=== PATIENT | male | born 1975 | race Caucasian/White ===

== ENCOUNTER 2018-09-06 22:05 | Inpatient (IN) | payer OTHER ==
[2018-09-06] MEDS ORDERED: Fentanyl 100 MCG/2 ML VIAL ONE (22:20)
[2018-09-07] MEDS ORDERED: Fentanyl 100 MCG/2 ML VIAL SLOW IVP PRN ×2 (00:43→07:39)
[2018-09-07] MEDS ORDERED: Ondansetron PF 4 MG/2 ML Vial IVP PRN ×2 (00:45→07:39)
[2018-09-07] MEDS: Fentanyl 100 MCG/2 ML VIAL SLOW IVP PRN ×2 (01:07→04:40)
[2018-09-07 01:24] VITALS: BMI 27.6
[2018-09-07] MEDS ORDERED: Calcium Carbonate 500 MG ChewTAB PO PRN (07:39)
[2018-09-07] MEDS ORDERED: Diabetic Tussin 200 MG/10 ML UDCUP PO PRN (07:39)
[2018-09-07] MEDS ORDERED: Bisacodyl 10 MG SUPP PR PRN (07:39)
[2018-09-07] MEDS ORDERED: Sodium Chloride 0.65% Nasal 44 ML BOT EA NARE PRN (07:39)
[2018-09-07] MEDS ORDERED: Cepastat Lozenges 1 LOZ PO PRN (07:39)
[2018-09-07] MEDS ORDERED: Loratadine 10 MG TAB PO PRN (07:39)
[2018-09-07] MEDS ORDERED: Loperamide HCl 2 MG CAP PO PRN (07:39)
[2018-09-07] MEDS ORDERED: Senokot S 8.6-50 MG TAB PO PRN (07:39)
[2018-09-07] MEDS ORDERED: hydrALAZINE 20 MG/ML VIAL SLOW IVP PRN (07:39)
[2018-09-07] MEDS ORDERED: Artificial Tears 18 DROP/0.9 ML EA EYE PRN (07:39)
[2018-09-07] MEDS ORDERED: Eucerin (Mineral Oil/Petrolatum,White) 30 gm Jar TOP PRN (07:39)
[2018-09-07] MEDS: Famotidine 20 MG TAB PO SCH ×2 (08:48→20:23)
[2018-09-07] MEDS: Ondansetron ODT 4 MG TAB PO PRN ×2 (08:48→18:01)
[2018-09-07] MEDS: HYDROcodone/Acetaminophen 5/325 mg Tablet PO PRN ×4 (08:48→22:14)
[2018-09-07] MEDS: Enoxaparin Sodium 40 MG/0.4 ML SYRINGE SC SCH (08:49)
[2018-09-07] MEDS ORDERED: Dicyclomine 20 MG TAB PO PRN (10:51)
--- NOTE | 2018-09-07 11:16 | HP ---
PRIMARY CARE PHYSICIAN: The patient is an inmate. [facility] admission. REASON FOR ADMISSION: Proctocolitis, abdominal pain. HISTORY OF PRESENT ILLNESS: A 43-year-old male, who reports that he has history of Crohn disease, which was diagnosed about 4-5 years ago. He is not on any specific treatment at this point. He came to emergency room with recurrent history of abdominal pain. He describes pain diffuse positional, not related with food. The patient reports that when he lies down on his back, his pain gets worse, and whenever he bends forward, at that time pain gets better. He denies any associated fever or chills. He does report a few days ago he had nausea and vomiting, and at that time, he noticed blood with vomitus. He also noticed some blood in stool. He denies any abdominal distention. He denies any UTI symptoms. He denies any weight loss. The patient reports that he had upper and lower endoscopy 4-5 years ago at some hospital, which he is not able to tell me the name. 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 He also reports that he has history of pancreatitis. The patient was initially evaluated at [facility], where he was found with proctocolitis based on CT scan and he was transferred to our hospital for further evaluation and treatment. In our emergency room, he was hemodynamically stable. He was given fentanyl for pain, and subsequently, he was admitted to medical floor. REVIEW OF SYSTEMS: CONSTITUTIONAL: Negative for weight loss or gain, ability to conduct usual activities. SKIN: Negative for rash, itching. EYES: Negative for double vision, pain. ENT/MOUTH: Negative for nose bleeding, neck stiffness, pain, tenderness. CARDIOVASCULAR: Negative for palpitations, dyspnea on exertion, orthopnea. RESPIRATORY: Negative for shortness of breath, wheezing, cough, hemoptysis, fever or night sweats. GASTROINTESTINAL: Negative for poor appetite, abdominal pain, heartburn, nausea, vomiting, constipation, or diarrhea. GENITOURINARY: Negative for urgency, frequency, dysuria, nocturia. MUSCULOSKELETAL: Negative for pain, swelling. NEUROLOGIC/PSYCHIATRIC: Negative for anxiety, depression. ALLERGY/IMMUNOLOGIC: Negative for skin rash, bleeding tendency. Please see my HPI for pertinent positive and negative. All other review of systems reviewed and negative, except as mentioned in HPI. PAST MEDICAL HISTORY: Per the patient, he has history of Crohn disease, pancreatitis, inflammatory bowel disease. PAST SURGICAL HISTORY: Cholecystectomy, upper and lower endoscopy. PAST PSYCHIATRIC HISTORY: Reviewed and negative. SOCIAL HISTORY: The patient is living at a detention. No history of currently tobacco, alcohol, or illicit drug abuse. FAMILY HISTORY: Crohn disease to his nephew. Mother had some unknown cancer. ALLERGIES: NO KNOWN DRUG ALLERGY. CURRENT HOME MEDICATIONS: The patient is not on any specific medication at detention. EMERGENCY ROOM COURSE: The patient is given fentanyl. PHYSICAL EXAMINATION: VITAL SIGNS: Currently, blood pressure 110/77, pulse 105, respiratory rate 20, temperature 98.7, saturation 95% on room air, weight 92.5 kg. GENERAL: The patient is currently alert, awake. No obvious acute distress. HEENT: Head; normocephalic, atraumatic. Eyes; pupils round and reactive to light. Extraocular muscles intact. ENT, oropharynx within normal limits. Moist mucous membranes. No oral lesion. No pharyngeal erythema. No exudate. NECK: Supple. No JVD. No thyromegaly. No carotid bruit. No jugular venous distention. LUNGS: Clear to auscultation without any rhonchi or rales. CARDIAC: S1, S2. Regular without any murmur. No gallop. No rub. ABDOMEN: The patient does have subjective diffuse abdominal discomfort. No peritoneal sign. No guarding. No rigidity. No rebound. BACK: Unremarkable. No CVA tenderness. EXTREMITIES: Upper extremity, passive movement of all joints are normal. Lower extremity, no edema. Good distal pulsation. SKIN: No skin rash. HEMATOLOGICAL: No lymphadenopathy. NEUROLOGIC: Nonfocal examination. SIGNIFICANT LABORATORY DATA: Blood test done at [facility], reviewed found with proctocolitis. Otherwise, most of the lab reports are normal. We will repeat CBC, CMP, lipase tomorrow. IMPRESSION: 1. Acute on chronic abdominal pain. 2. Proctocolitis. 3. History of Crohn disease. 4. History of recurrent pancreatitis. PLAN: The patient will be admitted to medical floor. Gastroenterology will be consulted. We will obtain medical record from previous hospital. GI prophylax with Pepcid 20 mg p.o. b.i.d., Bentyl p.r.n. for GI cramp. Pain controlled with fentanyl. DVT prophylaxis for Lovenox 40 mg subcu daily. Disposition plan based on clinical course. We are expecting the patient's stay in hospital more than 2 midnights. Plan of care discussed with the patient in detail. Job ID: [id number]
[2018-09-07] MEDS: Zolpidem Tartrate 5 MG TAB PO PRN (22:18)
[2018-09-08] MEDS: HYDROcodone/Acetaminophen 5/325 mg Tablet PO PRN ×5 (02:10→23:04)
[2018-09-08] MEDS ORDERED: GoLYTELY 4,000 ml Bottle PO SCH ×2 (06:00→12:00)
[2018-09-08 06:12] LABS: #Eosinphils 0.1 thou/uL (0.0-0.7); #Lymphocytes 1.2 thou/uL (1.20-3.40); #Monocytes 0.5 thou/uL (0.11-0.59); #Neutrophils 4.3 thou/uL (1.40-6.50); %Basophils 0.2 % (0.0-1.0); %Eosinophils 1.5 % (0.0-10.0); %Lymphocytes 18.8 % (21.0-51.0); %Monocytes 8.7 % (0.0-10.0); %Neutrophils 70.7 % (42.0-75.0); Hemoglobin 9.5 g/dL (14.0-18.0); Mean Corpuscular HGB CONC 33.7 g/dL (32.0-36.0); Mean Corpuscular Hemoglobin 27.6 pg (27.0-31.0); Mean Corpuscular Volume 82.1 fL (78.0-98.0); Platelet Count 251 thou/uL (130-400); RBC Distribution Width 12.4 % (11.5-14.5); Red Blood Cell (RBC) Count 3.42 mill/uL (4.70-6.10); White Blood Cell (WBC) Count 6.1 thou/uL (4.8-10.8)
[2018-09-08 06:49] LABS: ALT (SGPT) 13 U/L (8-55); AST (SGOT) 12 U/L (5-34); Albumin 2.8 g/dL (3.5-5.0); Alkaline Phosphatase 51 U/L (40-150); Anion Gap 11 mmol/L (10-20); BUN (Urea Nitrogen) 14 mg/dL (8.9-20.6); Bilirubin, Total 0.3 mg/dL (0.2-1.2); Calc. Creatinine Clearance 174 mL/min (70-130); Calcium 8.4 mg/dL (7.8-10.44); Carbon Dioxide 26 mmol/L (22-29); Chloride 101 mmol/L (98-107); Estimated GFR-MDRD Greater than 90; Globulin 2.4 g/dL (2.4-3.5); Glucose 121 mg/dL (70-105); Lipase 7 U/L (8-78); Potassium 3.8 mmol/L (3.5-5.1); Protein, Total 5.2 g/dL (6.0-8.3); Sodium 134 mmol/L (136-145)
--- NOTE | 2018-09-08 07:30 | CON ---
DATE OF CONSULTATION: 09/07/2018 REASON FOR CONSULTATION: Abdominal pain, diarrhea, mild rectal bleeding and abdominal CAT scan done showed proctocolitis. HISTORY: Mr. Javon Short is a 43-year-old male who is an inmate at [facility]. The patient has history of Crohn disease and is not taking medication at all. He is not very truthful about his actual history. He tells me about 4-5 years ago, he was hospitalized with abdominal pain, diarrhea, and had colonoscopy. He was told to have Crohn disease at that time. However, he was not placed on any medication on long-term basis, though has taken intermittent dose of . The patient also has history of pancreatitis in the past. Again, he is very unclear about the etiology. He was drinking alcohol and on the same day, he says he was not doing too heavy. He said he was drinking 4 or 5 drinks over the weekend; otherwise he does not drink at all. The patient tells me he has had 6 or 7 hospital admissions over the last 6 years. The patient developed abdominal pain. It was a cramping in nature over lower abdomen. He also has diarrhea. He says he was having 8 to 9 stools a day. The bleeding was very mild. He says he has lost may be over 26 pounds over the last 1 month. He was sent to [place] [facility] because of abdominal pain and diarrhea. He had a CAT scan and was found to have proctocolitis on CAT scan. The patient was transferred here for further care. He is tolerating diet without any worsening abdominal pain, nausea, or vomiting. He also has tenderness. He says he feels like he needs to go to the bathroom, strains but comes out. There is no history of fever or any systemic symptoms. He appears very comfortable and in no distress at the present time. He is not very forthcoming about having EGD or colonoscopy done or hospital stay. No relevant history. ALLERGIES: NONE. SOCIAL HISTORY: The patient is . No history of alcohol abuse. No history of smoking. No drug abuse. MEDICAL ILLNESSES: 1. History of Crohn disease, diagnosed 5 years ago. 2. Pancreatitis. 3. Status post cholecystectomy. 4. EGD and colonoscopy in the past. FAMILY HISTORY: Nephew with Crohn disease. Mother had some unknown cancer. MEDICATIONS: At the present time, none. REVIEW OF SYSTEMS: CONSTITUTIONAL. He has weight loss of 20 pounds over the last 1 month. His energy level is good. He has no fever. No night sweats. HEAD: No chronic headache. No syncope. No seizure. EYES: No impaired vision or any diplopia. EARS: No hearing loss. NOSE: No nose bleed. THROAT: No sore throat. LUNGS: No chronic coughing, hemoptysis, or dyspnea. CARDIOVASCULAR: No chest pain. No palpitation. No dyspnea, orthopnea, or PND. GI: As in history of present illness. : No dysuria, hematuria or frequency of urination. MUSCULOSKELETAL: Not known. ENDOCRINE: Not known. HEMATOLOGICAL: Not known. EXTREMITIES: Reveal no edema. PHYSICAL EXAMINATION: GENERAL: He is well built, appears very comfortable, in no acute distress. VITAL SIGNS: Afebrile, pulse is 86, blood pressure 116/71. HEENT: Conjunctivae clear. NECK: Supple. No adenitis or thyromegaly noted. CARDIOVASCULAR: First and second heart sounds are normal. LUNGS: Clear to auscultation. ABDOMEN: Soft, palpable. Abdomen is nondistended. Abdomen is mildly tender over the lower abdomen. It is more over the left lower quadrant. There is no rebound or guarding. Bowel sounds normal. LABORATORY DATA: None available at this time. IMPRESSION: 1. A 43-year-old male with history of Crohn disease diagnosed 5 years ago. He has been intermittently on prednisone. He tells me he was on prednisone recently when he has been in halfway. Now, he is on the prednisone. The history of Crohn disease and again he is not very clear about where it was done and what exactly was recommended. 2. History of pancreatitis. 3. Status post cholecystectomy. RECOMMENDATIONS: 1. The patient needs to have a colonoscopy to assess the extent of his colitis. I did talk to Mr. Short. 2. He needs to be on a clear liquid diet today and take the prep tomorrow to clean out. He is agreeable. I will be out of town from tomorrow and Dr. Chidi Brown is on-call for me for further procedure to be done for the patient. Job ID: [id number]
[2018-09-08] MEDS: Famotidine 20 MG TAB PO SCH ×2 (08:22→21:33)
[2018-09-08] MEDS: Enoxaparin Sodium 40 MG/0.4 ML SYRINGE SC SCH (08:22)
[2018-09-08] MEDS: Ondansetron ODT 4 MG TAB PO PRN ×4 (11:05→23:04)
--- NOTE | 2018-09-08 12:54 | PDOC.PN ---
- Subjective Encounter Start Date: 09/08/18 Encounter Start Time: 13:41 -: old records requested/rev Patient seen and examined. No new complaints. No overnight events pt is not tolerating bowel preparation - Objective Resuscitation Status - Order Detail: 09/07/18 07:37 Resuscitation Status Routine Resuscitation Status: FULL: Full Resuscitation MAR Reviewed: Yes Vital Signs & Weight: Vital Signs (12 hours) Temp Pulse Resp BP Pulse Ox 09/08/18 07:40 97.6 F 82 18 120/73 95 09/08/18 03:56 96 Weight Admit Weight 203 lb 14.841 oz Weight 203 lb 14.841 oz Result Diagrams: 09/08/18 05:34 09/08/18 05:34 Phys Exam - Physical Examination Constitutional: NAD HEENT: PERRLA, moist MMs, sclera anicteric Neck: no JVD, supple Respiratory: no wheezing, no rales, no rhonchi Cardiovascular: RRR, no significant murmur, no rub Gastrointestinal: soft, non-tender, no distention, positive bowel sounds Musculoskeletal: no edema, pulses present Neurological: non-focal, normal sensation Lymphatic: no nodes Psychiatric: normal affect, A&O x 3 Skin: no rash, normal turgor Dx/Plan (1) Proctocolitis Code(s): K52.9 - NONINFECTIVE GASTROENTERITIS AND COLITIS, UNSPECIFIED Status : Acute (2) Anemia, normocytic normochromic Code(s): D64.9 - ANEMIA, UNSPECIFIED Status: Chronic (3) Crohns disease Code(s): K50.90 - CROHN'S DISEASE, UNSPECIFIED, WITHOUT COMPLICATIONS Status: Chronic (4) H/O chronic pancreatitis Code(s): Z87.19 - PERSONAL HISTORY OF OTHER DISEASES OF THE DIGESTIVE SYSTEM Status: Chronic - Plan cont current plan of care * will need repeat colonoscopy when preparation good * medication reviewed as below * symptomatic treatment. * will give fleet enema Review of Systems - Review of Systems ENT: negative: Ear Pain, Ear Discharge, Nose Pain, Nose Discharge, Nose Congestion, Mouth Pain, Mouth Swelling, Throat Pain, Throat Swelling, Other Respiratory: negative: Cough, Dry, Shortness of Breath, Hemoptysis, SOB with Excertion, Pleuritic Pain, Sputum, Wheezing Cardiovascular: negative: chest pain, palpitations, orthopnea, paroxysmal nocturnal dyspnea, edema, light headedness, other Gastrointestinal: Nausea, Vomiting. negative: Abdominal Pain, Diarrhea, Constipation, Melena, Hematochezia, Other Genitourinary: negative: Dysuria, Frequency, Incontinence, Hematuria, Retention , Other Musculoskeletal: negative: Neck Pain, Shoulder Pain, Arm Pain, Back Pain, Hand Pain, Leg Pain, Foot Pain, Other - Medications/Allergies Allergies/Adverse Reactions: Allergies Allergy/AdvReac Type Severity Reaction Status Date / Time No Known Allergies Allergy Unverified 09/07/18 00:32 Medications: Current Medications Acetaminophen (Tylenol) 650 mg PO Q4H PRN PRN Reason: Headache/Fever/Mild Pain (1-3) Hydrocodone Bitart/Acetaminophen ([place] 5/325) 1 tab PO Q4H PRN PRN Reason: Moderate Pain (4-6) Last Admin: 09/07/18 08:48 Dose: 1 tab Hydrocodone Bitart/Acetaminophen ([place] 5/325) 2 tab PO Q4H PRN PRN Reason: SEVERE PAIN (7-10) Last Admin: 09/08/18 06:06 Dose: 2 tab Artificial Tears (Tears Naturale) 2 drop EA EYE PRN PRN PRN Reason: Dry Eyes Bisacodyl (Dulcolax) 10 mg [place] DAILYPRN PRN PRN Reason: Constipation Calcium Carbonate (Tums) 1,000 mg PO Q4H PRN PRN Reason: Heartburn or Indigestion Dicyclomine HCl (Bentyl) 20 mg PO QID PRN PRN Reason: GI Cramping Last Admin: 09/07/18 18:01 Dose: 20 mg Enoxaparin Sodium (Lovenox) 40 mg SC 0900 [facility] Last Admin: 09/08/18 08:22 Dose: Not Given Famotidine (Pepcid) 20 mg PO BID [facility] Last Admin: 09/08/18 08:22 Dose: Not Given Fentanyl (Sublimaze) 25 mcg SLOW IVP Q2H PRN PRN Reason: Pain Last Admin: 09/08/18 11:04 Dose: 25 mcg Guaifenesin (Robitussin Sf) 200 mg PO Q4H PRN PRN Reason: Cough Hydralazine HCl (Apresoline) 10 mg SLOW IVP Q4H PRN PRN Reason: SBP > 180 and HR < 70 Loperamide HCl (Imodium) 2 mg PO PRN PRN PRN Reason: Diarrhea/Loose Stools Loratadine (Claritin) 10 mg PO DAILYPRN PRN PRN Reason: Sinus Symptoms Mineral Oil/White Petrolatum (Eucerin Cream) 0 gm TOP BIDPRN PRN PRN Reason: Dry Skin Ondansetron HCl (Zofran Odt) 4 mg PO Q6H PRN PRN Reason: Nausea/Vomiting Last Admin: 09/08/18 11:05 Dose: 4 mg Ondansetron HCl (Zofran) 4 mg IVP Q6H PRN PRN Reason: Nausea/Vomiting Polyethylene Glycol/Electrolytes (Golytely) 2,000 ml PO NOW EBRE Stop: 09/08/18 19:00 Last Admin: 09/08/18 12:09 Dose: 2,000 ml Senna/Docusate Sodium (Senokot S) 2 tab PO BID PRN PRN Reason: Constipation Sodium Chloride ([place] Nasal [place] 0.65%) 0 ml EA NARE QIDPRN PRN PRN Reason: Nasal Congestion Sodium Chloride (Flush - Normal Saline) 10 ml IVF Q12HR EBER Last Admin: 09/08/18 08:23 Dose: 10 ml Sodium Chloride (Flush - Normal Saline) 10 ml IVF PRN PRN PRN Reason: Saline Flush Throat Lozenges (Cepastat Lozenges) 1 pantera PO Q2H PRN PRN Reason: Sore Throat Zolpidem Tartrate (Ambien) 5 mg PO HSPRN PRN PRN Reason: Insomnia Last Admin: 09/07/18 22:18 Dose: 5 mg
[2018-09-08] MEDS ORDERED: Fleet Enema 133 ML BOT PR SCH (13:45)
--- NOTE | 2018-09-08 19:01 | PRG ---
DATE OF SERVICE: 09/08/2018 SUBJECTIVE: Mr. Short vomited some of his prep today and kept some down, but he did not finish it. His stool was not running clear. He has had abdominal pain in the lower abdomen. OBJECTIVE: VITAL SIGNS: Temperature 97.6, pulse 82, and blood pressure 120/73. GENERAL: He is in no acute distress. He is alert and oriented x3. LUNGS: Clear to auscultation bilaterally. HEART: Regular rate and rhythm without murmur. ABDOMEN: Soft, tender in the right lower abdomen. Bowel sounds are present. EXTREMITIES: No lower extremity edema. LABORATORY DATA: White blood cell count 6.1, hemoglobin 9.5, and platelets are 251. Bilirubin 0.3. AST 12, ALT 13, alkaline phosphatase 51, and albumin 2.8. IMPRESSION: History of Crohn disease diagnosed few years ago for which he was on medication at some point in the past, but could not afford them. He has been treated with prednisone intermittently and CT scan reportedly showed proctocolitis. He reports a 37-pound weight loss over the last several months. RECOMMENDATIONS: EGD and colonoscopy tomorrow and he is receiving additional bowel prep this evening. Job ID: [id number]
[2018-09-09] MEDS: HYDROcodone/Acetaminophen 5/325 mg Tablet PO PRN ×4 (05:22→23:52)
[2018-09-09] MEDS: Ondansetron ODT 4 MG TAB PO PRN ×2 (05:23→12:23)
[2018-09-09] MEDS: Famotidine 20 MG TAB PO SCH ×2 (08:52→19:33)
--- NOTE | 2018-09-09 10:31 | PDOC.PN ---
- Subjective Encounter Start Date: 09/09/18 Encounter Start Time: 09:00 Patient seen and examined. No new complaints. No overnight events he has abdominal pain - Objective Resuscitation Status - Order Detail: 09/07/18 07:37 Resuscitation Status Routine Resuscitation Status: FULL: Full Resuscitation MAR Reviewed: Yes Vital Signs & Weight: Vital Signs (12 hours) Temp Pulse Resp BP BP Pulse Ox 09/09/18 07:49 97.8 F 73 18 117/52 L 96 09/09/18 07:45 97.8 F 73 18 117/52 L 96 Weight Admit Weight 203 lb 14.841 oz Weight 203 lb 14.841 oz Result Diagrams: 09/08/18 05:34 09/08/18 05:34 Phys Exam - Physical Examination Constitutional: NAD HEENT: PERRLA, moist MMs, sclera anicteric Neck: no JVD, supple Respiratory: no wheezing, no rales, no rhonchi Cardiovascular: RRR, no significant murmur, no rub Gastrointestinal: soft, non-tender, no distention, positive bowel sounds Musculoskeletal: no edema, pulses present, edema present Neurological: non-focal, normal sensation, moves all 4 limbs Lymphatic: no nodes Psychiatric: normal affect, A&O x 3 Skin: no rash, normal turgor Dx/Plan (1) Proctocolitis Code(s): K52.9 - NONINFECTIVE GASTROENTERITIS AND COLITIS, UNSPECIFIED Status : Acute (2) Anemia, normocytic normochromic Code(s): D64.9 - ANEMIA, UNSPECIFIED Status: Chronic (3) Crohns disease Code(s): K50.90 - CROHN'S DISEASE, UNSPECIFIED, WITHOUT COMPLICATIONS Status: Chronic (4) H/O chronic pancreatitis Code(s): Z87.19 - PERSONAL HISTORY OF OTHER DISEASES OF THE DIGESTIVE SYSTEM Status: Chronic (5) Abdominal pain Code(s): R10.9 - UNSPECIFIED ABDOMINAL PAIN Status: Acute - Plan cont current plan of care * today EGD and colonoscopy * medication reviewed as below * symptomatic treatment * GI following * further plan will defer to GI. Review of Systems - Review of Systems ENT: negative: Ear Pain, Ear Discharge, Nose Pain, Nose Discharge, Nose Congestion, Mouth Pain, Mouth Swelling, Throat Pain, Throat Swelling, Other Respiratory: negative: Cough, Dry, Shortness of Breath, Hemoptysis, SOB with Excertion, Pleuritic Pain, Sputum, Wheezing Cardiovascular: negative: chest pain, palpitations, orthopnea, paroxysmal nocturnal dyspnea, edema, light headedness, other Gastrointestinal: Abdominal Pain. negative: Nausea, Vomiting, Diarrhea, Constipation, Melena, Hematochezia, Other Genitourinary: negative: Dysuria, Frequency, Incontinence, Hematuria, Retention , Other Musculoskeletal: negative: Neck Pain, Shoulder Pain, Arm Pain, Back Pain, Hand Pain, Leg Pain, Foot Pain, Other Skin: negative: Rash, Lesions, Fan, Bruising, Other - Medications/Allergies Allergies/Adverse Reactions: Allergies Allergy/AdvReac Type Severity Reaction Status Date / Time No Known Allergies Allergy Unverified 09/07/18 00:32 Medications: Current Medications Acetaminophen (Tylenol) 650 mg PO Q4H PRN PRN Reason: Headache/Fever/Mild Pain (1-3) Hydrocodone Bitart/Acetaminophen ([place] 5/325) 1 tab PO Q4H PRN PRN Reason: Moderate Pain (4-6) Last Admin: 09/07/18 08:48 Dose: 1 tab Hydrocodone Bitart/Acetaminophen ([place] 5/325) 2 tab PO Q4H PRN PRN Reason: SEVERE PAIN (7-10) Last Admin: 09/09/18 05:22 Dose: 2 tab Artificial Tears (Tears Naturale) 2 drop EA EYE PRN PRN PRN Reason: Dry Eyes Bisacodyl (Dulcolax) 10 mg [place] DAILYPRN PRN PRN Reason: Constipation Calcium Carbonate (Tums) 1,000 mg PO Q4H PRN PRN Reason: Heartburn or Indigestion Dicyclomine HCl (Bentyl) 20 mg PO QID PRN PRN Reason: GI Cramping Last Admin: 09/07/18 18:01 Dose: 20 mg Enoxaparin Sodium (Lovenox) 40 mg SC 0900 [facility] Last Admin: 09/08/18 08:22 Dose: Not Given Famotidine (Pepcid) 20 mg PO BID [facility] Last Admin: 09/09/18 08:52 Dose: Not Given Fentanyl (Sublimaze) 25 mcg SLOW IVP Q2H PRN PRN Reason: Pain Last Admin: 09/08/18 11:04 Dose: 25 mcg Guaifenesin (Robitussin Sf) 200 mg PO Q4H PRN PRN Reason: Cough Hydralazine HCl (Apresoline) 10 mg SLOW IVP Q4H PRN PRN Reason: SBP > 180 and HR < 70 Loperamide HCl (Imodium) 2 mg PO PRN PRN PRN Reason: Diarrhea/Loose Stools Loratadine (Claritin) 10 mg PO DAILYPRN PRN PRN Reason: Sinus Symptoms Mineral Oil/White Petrolatum (Eucerin Cream) 0 gm TOP BIDPRN PRN PRN Reason: Dry Skin Ondansetron HCl (Zofran Odt) 4 mg PO Q6H PRN PRN Reason: Nausea/Vomiting Last Admin: 09/09/18 05:23 Dose: 4 mg Ondansetron HCl (Zofran) 4 mg IVP Q6H PRN PRN Reason: Nausea/Vomiting Senna/Docusate Sodium (Senokot S) 2 tab PO BID PRN PRN Reason: Constipation Sodium Chloride ([place] Nasal [place] 0.65%) 0 ml EA NARE QIDPRN PRN PRN Reason: Nasal Congestion Sodium Chloride (Flush - Normal Saline) 10 ml IVF Q12HR EBER Last Admin: 09/09/18 08:52 Dose: Not Given Sodium Chloride (Flush - Normal Saline) 10 ml IVF PRN PRN PRN Reason: Saline Flush Throat Lozenges (Cepastat Lozenges) 1 pantera PO Q2H PRN PRN Reason: Sore Throat Zolpidem Tartrate (Ambien) 5 mg PO HSPRN PRN PRN Reason: Insomnia Last Admin: 09/07/18 22:18 Dose: 5 mg
[2018-09-09] MEDS ORDERED: Enoxaparin Sodium 40 MG/0.4 ML SYRINGE SC SCH (12:00)
[2018-09-09] MEDS: methylPREDNISolone Sod Succ 40 MG VIAL IVP SCH ×2 (12:22→21:40)
--- NOTE | 2018-09-09 13:17 | OP ---
DATE OF PROCEDURE: 09/09/2018 PROCEDURES PERFORMED: Esophagogastroduodenoscopy with biopsy and colonoscopy with biopsy. PREOPERATIVE DIAGNOSES: Weight loss and colitis. DESCRIPTION OF PROCEDURE: Informed consent was obtained from the patient. He was sedated with total intravenous anesthesia. The bite block was placed and the endoscope was advanced easily to the second portion of the duodenum and retroflexion was performed in the stomach. The esophagus had grade A erosive esophagitis with a possible 1 cm tongue of Booth esophagus. Biopsies were obtained from the distal esophagus to rule out Booth esophagus. The stomach was normal including retroflexed views. The pylorus and first and second portions of the duodenum were normal. Duodenal biopsies were taken to rule out celiac disease. The patient was turned around. Rectal exam was performed and was normal. The colonoscope was advanced to the distal descending colon. The preparation quality was good in this area. A tight stricture was encountered in the descending colon at 35 cm. This was too tight to pass the scope through. This had a very narrow opening and suspected diagnostic endoscope also would not be able to pass through this area. There was severe circumferential colitis with edema and erythema and loss of vascularity and white exudate and ulceration. There were numerous pseudopolyps throughout the colon, which were up to a couple of centimeters in size. Biopsies were obtained from the descending and sigmoid colon sent together. Separate biopsies were taken from the rectum. Retroflexed views in the rectum were otherwise unremarkable except for the inflammatory changes noted. IMPRESSION: 1. Mild erosive esophagitis grade A. Biopsy to rule out Booth esophagus. 2. Otherwise normal esophagogastroduodenoscopy. Duodenal biopsies taken to rule out celiac disease. 3. Severe circumferential inflammation with ulceration, erythema, edema and loss of vascularity and white exudate throughout the colon that could be visualized of the rectum, sigmoid, and descending. There were numerous large pseudopolyps. 4. There was a tight stricture at 35 cm. It was too tight to pass the endoscope through. The proximal two-thirds of the colon and the ileum were not visualized with this exam. I do not think an upper endoscope or pediatric colonoscope would be able to pass through the stricture either. This is a near obstructing stricture and I will keep him on a full liquid diet at this point. RECOMMENDATIONS: 1. Stool studies for C. diff culture and ova and parasite. Specimen was collected at the time of the endoscopy; however, this will be diluted considering it just took a bowel prep and this specimen required some irrigation to obtain adequate sample. 2. Start methylprednisolone 20 mg IV q.8 hours. 3. Check QuantiFERON and hepatitis B and HIV and hepatitis C serology in anticipation that he will require more aggressive immune suppression in the future likely with anti-TNF. 4. I suspect he will ultimately require colectomy in the future. However, we will see how he does with medical therapy first. If the stricture fails to improve with immune suppression, then given his 30+ pound weight loss, still neoplastic process is a concern and again this may be an indication that he could require surgery. Job ID: [id number]
[2018-09-09] MEDS ORDERED: PROPOFOL 200 MG/20 ML VIAL ONE (16:30)
[2018-09-09] MEDS: Zolpidem Tartrate 5 MG TAB PO PRN (23:53)
[2018-09-10] MEDS: methylPREDNISolone Sod Succ 40 MG VIAL IVP SCH ×3 (05:48→22:19)
[2018-09-10] MEDS: HYDROcodone/Acetaminophen 5/325 mg Tablet PO PRN ×5 (05:48→22:21)
[2018-09-10] MEDS: Ondansetron ODT 4 MG TAB PO PRN ×3 (05:49→14:06)
[2018-09-10] MEDS: Famotidine 20 MG TAB PO SCH ×2 (08:05→19:47)
[2018-09-10] MEDS: Enoxaparin Sodium 40 MG/0.4 ML SYRINGE SC SCH (08:06)
--- NOTE | 2018-09-10 10:12 | PDOC.PN ---
- Subjective Encounter Start Date: 09/10/18 Encounter Start Time: 09:10 Patient seen and examined. No overnight events pt still has abdominal pain and he is asking for anxiety meds - Objective Resuscitation Status - Order Detail: 09/07/18 07:37 Resuscitation Status Routine Resuscitation Status: FULL: Full Resuscitation MAR Reviewed: Yes Vital Signs & Weight: Vital Signs (12 hours) Temp Pulse Resp BP Pulse Ox 09/10/18 07:36 97.6 F 79 20 124/74 93 L Weight Admit Weight 203 lb 14.841 oz Weight 203 lb 14.841 oz I&O: 09/09/18 09/10/18 09/11/18 06:59 06:59 06:59 Intake Total 600 Balance 600 Result Diagrams: 09/08/18 05:34 09/08/18 05:34 Phys Exam - Physical Examination Constitutional: NAD HEENT: PERRLA, moist MMs, sclera anicteric, oral pharynx no lesions Neck: no JVD, supple Respiratory: no wheezing, no rales, no rhonchi Cardiovascular: RRR, no significant murmur, no rub Gastrointestinal: soft, no distention, positive bowel sounds discomfort Musculoskeletal: no edema, pulses present Neurological: non-focal, normal sensation, moves all 4 limbs Lymphatic: no nodes Psychiatric: normal affect, A&O x 3 Skin: no rash, normal turgor Dx/Plan (1) Proctocolitis Code(s): K52.9 - NONINFECTIVE GASTROENTERITIS AND COLITIS, UNSPECIFIED Status : Acute (2) Anemia, normocytic normochromic Code(s): D64.9 - ANEMIA, UNSPECIFIED Status: Chronic (3) Crohns disease Code(s): K50.90 - CROHN'S DISEASE, UNSPECIFIED, WITHOUT COMPLICATIONS Status: Chronic (4) H/O chronic pancreatitis Code(s): Z87.19 - PERSONAL HISTORY OF OTHER DISEASES OF THE DIGESTIVE SYSTEM Status: Chronic (5) Abdominal pain Code(s): R10.9 - UNSPECIFIED ABDOMINAL PAIN Status: Acute (6) Erosive esophagitis Code(s): K22.10 - ULCER OF ESOPHAGUS WITHOUT BLEEDING Status: Acute (7) 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 * stool for infection work up negative * may need ? repeat colonoscopy vs general surgery consult for surgery * in case if he needs surgery, ? may need to transfer to [facility] Review of Systems - Review of Systems ENT: negative: Ear Pain, Ear Discharge, Nose Pain, Nose Discharge, Nose Congestion, Mouth Pain, Mouth Swelling, Throat Pain, Throat Swelling, Other Respiratory: negative: Cough, Dry, Shortness of Breath, Hemoptysis, SOB with Excertion, Pleuritic Pain, Sputum, Wheezing Cardiovascular: negative: chest pain, palpitations, orthopnea, paroxysmal nocturnal dyspnea, edema, light headedness, other Gastrointestinal: Abdominal Pain. negative: Nausea, Vomiting, Diarrhea, Constipation, Melena, Hematochezia, Other Genitourinary: negative: Dysuria, Frequency, Incontinence, Hematuria, Retention , Other Musculoskeletal: negative: Neck Pain, Shoulder Pain, Arm Pain, Back Pain, Hand Pain, Leg Pain, Foot Pain, Other Skin: negative: Rash, Lesions, Fan, Bruising, Other - Medications/Allergies Allergies/Adverse Reactions: Allergies Allergy/AdvReac Type Severity Reaction Status Date / Time No Known Allergies Allergy Unverified 09/07/18 00:32 Medications: Current Medications Acetaminophen (Tylenol) 650 mg PO Q4H PRN PRN Reason: Headache/Fever/Mild Pain (1-3) Hydrocodone Bitart/Acetaminophen ([place] 5/325) 1 tab PO Q4H PRN PRN Reason: Moderate Pain (4-6) Last Admin: 09/07/18 08:48 Dose: 1 tab Hydrocodone Bitart/Acetaminophen ([place] 5/325) 2 tab PO Q4H PRN PRN Reason: SEVERE PAIN (7-10) Last Admin: 09/10/18 10:03 Dose: 2 tab Artificial Tears (Tears Naturale) 2 drop EA EYE PRN PRN PRN Reason: Dry Eyes Bisacodyl (Dulcolax) 10 mg [place] DAILYPRN PRN PRN Reason: Constipation Calcium Carbonate (Tums) 1,000 mg PO Q4H PRN PRN Reason: Heartburn or Indigestion Dicyclomine HCl (Bentyl) 20 mg PO QID PRN PRN Reason: GI Cramping Last Admin: 09/07/18 18:01 Dose: 20 mg Enoxaparin Sodium (Lovenox) 40 mg SC 0900 [facility] Last Admin: 09/10/18 08:06 Dose: 40 mg Famotidine (Pepcid) 20 mg PO BID [facility] Last Admin: 09/10/18 08:05 Dose: 20 mg Fentanyl (Sublimaze) 25 mcg SLOW IVP Q2H PRN PRN Reason: Pain Last Admin: 09/08/18 11:04 Dose: 25 mcg Guaifenesin (Robitussin Sf) 200 mg PO Q4H PRN PRN Reason: Cough Hydralazine HCl (Apresoline) 10 mg SLOW IVP Q4H PRN PRN Reason: SBP > 180 and HR < 70 Loperamide HCl (Imodium) 2 mg PO PRN PRN PRN Reason: Diarrhea/Loose Stools Loratadine (Claritin) 10 mg PO DAILYPRN PRN PRN Reason: Sinus Symptoms Methylprednisolone Sodium Succinate (Solu-Medrol) 20 mg IVP Q8HR [facility] Last Admin: 09/10/18 05:48 Dose: 20 mg Mineral Oil/White Petrolatum (Eucerin Cream) 0 gm TOP BIDPRN PRN PRN Reason: Dry Skin Ondansetron HCl (Zofran Odt) 4 mg PO Q6H PRN PRN Reason: Nausea/Vomiting Last Admin: 09/10/18 10:04 Dose: 4 mg Ondansetron HCl (Zofran) 4 mg IVP Q6H PRN PRN Reason: Nausea/Vomiting Senna/Docusate Sodium (Senokot S) 2 tab PO BID PRN PRN Reason: Constipation Sodium Chloride ([place] Nasal [place] 0.65%) 0 ml EA NARE QIDPRN PRN PRN Reason: Nasal Congestion Sodium Chloride (Flush - Normal Saline) 10 ml IVF Q12HR [facility] Last Admin: 09/10/18 08:06 Dose: 10 ml Sodium Chloride (Flush - Normal Saline) 10 ml IVF PRN PRN PRN Reason: Saline Flush Throat Lozenges (Cepastat Lozenges) 1 pantera PO Q2H PRN PRN Reason: Sore Throat Zolpidem Tartrate (Ambien) 5 mg PO HSPRN PRN PRN Reason: Insomnia Last Admin: 09/09/18 23:53 Dose: 5 mg
[2018-09-10] MEDS: Lorazepam 1 MG TAB PO PRN ×2 (14:07→18:00)
--- NOTE | 2018-09-10 15:05 | PRG ---
DATE OF SERVICE: 09/10/2018 SUBJECTIVE: Mr. Short still has left lower quadrant abdominal pain, for which he has been taking hydrocodone. He has started methylprednisolone yesterday and is having some improvement. He has had no stool output today. OBJECTIVE: VITAL SIGNS: Temperature is 97.6, pulse 79, blood pressure 124/74. GENERAL: He is in no acute distress. Alert and oriented x3. LUNGS: Clear to auscultation bilaterally. HEART: Regular rate and rhythm without murmur. ABDOMEN: Has minimal tenderness in lower abdomen without guarding. Bowel sounds are present. EXTREMITIES: No lower extremity edema. LABORATORY DATA: No new labs today. IMPRESSION: Severe Crohn's colitis with stricture in the descending colon and was too tight to pass the colonoscope through. This is a near obstructing stricture, and I suspect he will ultimately require surgical treatment for this. He has severe inflammation in the remainder of the colon that could be visualized. The proximal two-thirds of the colon and ileum could not be visualized. RECOMMENDATIONS: 1. Continue methylprednisolone. 2. Await histopathology. If the biopsies show dysplastic changes in the random colon biopsies, then he should proceed directly to colectomy and ileostomy. If the biopsies do not show dysplasia, then option includes giving a chance for medical therapy and we will continue with steroids. In the meantime, we will check QuantiFERON and hepatitis B and HIV and hepatitis C studies for considering initiation of Remicade. The potential complications with Remicade, however, will be continuity of care and expense and if he is released from intermediate soon, then this may be very difficult to obtain. I anticipate that he will be in the hospital for several more days just for his steroid and then we will have to await biopsies and blood test results in the meantime. From there, it will have to be determined whether or not he proceeds to colectomy more immediately or not. Job ID: [id number]
[2018-09-10 16:00] LABS: HBSAB Concentration 1.68 mIU/mL; HBSAg Index 0.26 S/CO (0-0.99); HIV (1/2) Antibody/Antigen Non-Reactive (NonReactive); Hep B Core Total Ab Non-Reactive (NonReactive); Hep B Core Total Index 0.05 S/CO (0-0.79); Hep B Surf AB Non-Reactive (NonReactive); Hep B Surf Ag Non-Reactive S/CO (NonReactive); Hep C IgG Ab Non-Reactive (NonReactive)
[2018-09-10] MEDS: Zolpidem Tartrate 5 MG TAB PO PRN (22:20)
[2018-09-11] MEDS: Lorazepam 1 MG TAB PO PRN ×6 (00:13→22:22)
[2018-09-11] MEDS: HYDROcodone/Acetaminophen 5/325 mg Tablet PO PRN ×5 (04:23→22:22)
[2018-09-11] MEDS: methylPREDNISolone Sod Succ 40 MG VIAL IVP SCH ×3 (05:34→22:23)
[2018-09-11] MEDS: Famotidine 20 MG TAB PO SCH ×2 (08:11→19:39)
[2018-09-11] MEDS: Enoxaparin Sodium 40 MG/0.4 ML SYRINGE SC SCH (08:13)
[2018-09-11] MEDS ORDERED: Clopidogrel Bisulfate 75 MG TAB ONE (09:14)
[2018-09-11] MEDS ORDERED: Mag-Al Plus 1200 MG/1200 MG/120 MG/30 ML UDCUP PO PRN (09:41)
--- NOTE | 2018-09-11 13:00 | PRG ---
DATE OF SERVICE: 09/11/2018 SUBJECTIVE: Mr. Short is feeling better with steroids. He is tolerating his full liquids well. He had a stool with a little bit more form and no blood this morning. He is asking for a solid diet. OBJECTIVE: VITAL SIGNS: Temperature 97.8, pulse 79, and blood pressure 130/75. GENERAL: He is in no acute distress. Alert and oriented x3. LUNGS: Clear to auscultation bilaterally. HEART: Regular rate and rhythm without murmur. ABDOMEN: Soft, nontender, and nondistended. Bowel sounds are present. EXTREMITIES: No lower extremity edema. IMPRESSION: 1. Severe Crohn's colitis. He is clinically improving with IV steroids. He will require immunosuppression with biologic such as Remicade, however, while I initiate the lab workups and make this possible, I do not think we can likely initiate medication here with this hospitalization without better plan for being able to continue infusions after the initial loading dose. This would be better done through the present system, preferably [facility]. 2. Colonic stricture, too tight to pass the endoscope through. Biopsies from the colon were obtained. If he does have dysplasia by the biopsies, then he will require colectomy more immediately. If there is no dysplasia on the biopsies, then he could potentially receive treatment for the Crohn's with steroids and potentially anti-TNF with followup endoscopy to re-evaluate the stricture. Still this may likely ultimately require surgical resection. RECOMMENDATIONS: 1. Continue Solu-Medrol. 2. I will advance to a low fiber diet. 3. Transfer to [facility] is recommended given that he is looking at a more prolonged hospital stay with the severity of his Crohn's as well as need for more involved treatments potentially with anti-TNF and potentially with colectomy. Job ID: [id number]
[2018-09-11] MEDS: Ondansetron ODT 4 MG TAB PO PRN ×2 (14:41→22:22)
--- NOTE | 2018-09-11 14:54 | PDOC.PN ---
- Subjective Encounter Start Date: 09/11/18 Encounter Start Time: 14:50 Subjective: f/u for Crohn's flare and colitis with negative infectious workup. -: Receiving Solumedrol and stools with more form and less frequent. -: Tolerating po intake. - Objective Resuscitation Status - Order Detail: 09/07/18 07:37 Resuscitation Status Routine Resuscitation Status: FULL: Full Resuscitation MAR Reviewed: Yes Vital Signs & Weight: Vital Signs (12 hours) Temp Pulse Resp BP Pulse Ox 09/11/18 08:00 93 L 09/11/18 07:25 97.8 F 79 18 130/75 93 L Weight Admit Weight 203 lb 14.841 oz Weight 203 lb 14.841 oz I&O: 09/10/18 09/11/18 09/12/18 06:59 06:59 06:59 Intake Total 600 840 Balance 600 840 Result Diagrams: 09/08/18 05:34 09/08/18 05:34 Additional Labs: Microbiology 09/09/18 10:30 Stool Stool Culture - Final 09/09/18 10:30 Stool Rapid Parasite Screen - Final 09/09/18 10:30 Stool Campylobacter Antigen Assay - Final 09/09/18 10:30 Stool Shiga Toxin Test - Final 09/09/18 10:30 Stool C. difficile GDH Antigen & Toxins - Final Laboratory Tests 09/10/18 15:03 Hep Bs Antigen Non-Reactive Hep Bs Antibody Non-Reactive Hep B Core Total Ab Non-Reactive Hepatitis C Antibody Non-Reactive HIV 1&2 Antigen & Ab Non-Reactive Phys Exam - Physical Examination Constitutional: NAD HEENT: PERRLA, sclera anicteric, oral pharynx no lesions Neck: no nodes, no JVD, supple, full ROM Respiratory: no wheezing, no rales, no rhonchi, clear to auscultation bilateral S1, S2 Cardiovascular: RRR, no significant murmur, no rub, gallop Gastrointestinal: soft, non-tender, no distention, positive bowel sounds Musculoskeletal: no edema, pulses present Neurological: normal sensation, moves all 4 limbs Psychiatric: A&O x 3 Skin: normal turgor, cap refill <2 seconds Dx/Plan (1) Crohns disease Code(s): K50.90 - CROHN'S DISEASE, UNSPECIFIED, WITHOUT COMPLICATIONS Status: Chronic Qualifiers: Gastrointestinal tract location: large intestine Comment: Continue Solumedrol 20mg IV q6h, may need immunosuppressive therapy (2) Proctocolitis Code(s): K52.9 - NONINFECTIVE GASTROENTERITIS AND COLITIS, UNSPECIFIED Status : Acute Comment: Secondary to #1, infectious workup negative to date, continue Solumedrol (3) Abdominal pain Code(s): R10.9 - UNSPECIFIED ABDOMINAL PAIN Status: Acute Qualifiers: Abdominal location: generalized Qualified Code(s): R10.84 - Generalized abdominal pain Comment: Improved overall, supportive mgmt, tolerating po intake (4) 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
[2018-09-11] MEDS: Zolpidem Tartrate 5 MG TAB PO PRN (23:34)
[2018-09-12] MEDS: HYDROcodone/Acetaminophen 5/325 mg Tablet PO PRN ×4 (04:55→20:58)
[2018-09-12] MEDS: methylPREDNISolone Sod Succ 40 MG VIAL IVP SCH ×3 (04:56→22:07)
[2018-09-12] MEDS: Lorazepam 1 MG TAB PO PRN ×4 (04:56→23:42)
[2018-09-12 06:29] LABS: #Lymphocytes 0.7 thou/uL (1.20-3.40); #Monocytes 0.3 thou/uL (0.11-0.59); #Neutrophils 4.3 thou/uL (1.40-6.50); %Eosinophils 0.3 % (0.0-10.0); %Lymphocytes 13.3 % (21.0-51.0); %Monocytes 6.3 % (0.0-10.0); %Neutrophils 80.1 % (42.0-75.0); Hemoglobin 9.8 g/dL (14.0-18.0); Mean Corpuscular HGB CONC 33.4 g/dL (32.0-36.0); Mean Corpuscular Hemoglobin 27.5 pg (27.0-31.0); Mean Corpuscular Volume 82.3 fL (78.0-98.0); Platelet Count 300 thou/uL (130-400); RBC Distribution Width 12.3 % (11.5-14.5); Red Blood Cell (RBC) Count 3.57 mill/uL (4.70-6.10); White Blood Cell (WBC) Count 5.4 thou/uL (4.8-10.8)
[2018-09-12 07:00] LABS: ALT (SGPT) 41 U/L (8-55); AST (SGOT) 7 U/L (5-34); Alkaline Phosphatase 111 U/L (40-150); Anion Gap 10 mmol/L (10-20); BUN (Urea Nitrogen) 15 mg/dL (8.9-20.6); Bilirubin, Total Less than 0.2 mg/dL (0.2-1.2); Calc. Creatinine Clearance 177 mL/min (70-130); Calcium 8.9 mg/dL (7.8-10.44); Carbon Dioxide 30 mmol/L (22-29); Chloride 100 mmol/L (98-107); Estimated GFR-MDRD Greater than 90; Globulin 2.8 g/dL (2.4-3.5); Glucose 142 mg/dL (70-105); Potassium 4.3 mmol/L (3.5-5.1); Protein, Total 5.8 g/dL (6.0-8.3); Sodium 136 mmol/L (136-145)
[2018-09-12] MEDS: Famotidine 20 MG TAB PO SCH ×2 (09:22→20:57)
[2018-09-12] MEDS: Enoxaparin Sodium 40 MG/0.4 ML SYRINGE SC SCH (09:23)
--- NOTE | 2018-09-12 15:46 | PRG ---
DATE OF SERVICE: 09/12/2018 SUBJECTIVE: Mr. Short is eating large amounts regular food and drinking plenty of fluids. He does have some cramping lower abdominal discomfort. He had one bowel movement this morning, which was somewhat formed. He has had no blood in the stool. OBJECTIVE: VITAL SIGNS: Temperature 97.7, pulse 74, blood pressure 115/71. GENERAL: He is in no acute distress. Alert and oriented x3. HEENT: Eyes have no scleral icterus. LUNGS: Clear to auscultation bilaterally. HEART: Regular rate and rhythm without murmur. ABDOMEN: Soft, nontender, nondistended. Bowel sounds are present. EXTREMITIES: No lower extremity edema. LABORATORY DATA: White blood cell count 5.4, hemoglobin 9.8, platelets 300, creatinine 0.69, bilirubin 0.2, AST 7, ALT 41, alkaline phosphatase 111, and albumin 3.0. IMPRESSION: 1. Severe Crohn's colitis. 2. Colonic stricture. Symptomatically, he has improved significantly with IV steroids. He has a tight stricture in the descending colon; however, he is not showing obstructive symptoms at this point. RECOMMENDATIONS: 1. Continue IV steroids. He could likely transition to oral steroids in the next couple of days. 2. He is tolerating a low-fiber diet. 3. Await biopsies from the colon. If these show dysplasia, then the next step is colectomy. If the biopsies do not confirm dysplasia, then he could potentially be given a trial of medical therapy followed by colonoscopy to evaluate response ,and then if he is failing to respond, then again colectomy will likely be required. The colonic stricture indicates severe disease and it is concerning for the potential for neoplastic process. The more proximal colon could not be viewed or screened. For medical therapy, he will require anti-TNF. It would not make sense to start the first dose of Remicade here now without any assurance of being able to continue the loading and maintenance Remicade. Given the need for anti-TNF therapy and potential colectomy and anticipation for longer term hospitalization, I would recommend referral to [facility]. In anticipation of starting an anti-TNF, I have ordered a QuantiFERON level and viral hepatitis screen and HIV serology. Hepatitis B, hepatitis C, and HIV have been confirmed as negative. If the biopsies show no dysplasia and the patient is unable to transfer to a situation which he can be started on an anti-TNF, then likely what will happen is he will receive transition to oral steroids and [facility], where he will complete a steroid taper. At which point, he is likely to re-flare and be readmitted. This cycle will continue unless he receives more definitive treatment for his Crohn's, which will either be anti-TNF which may not be adequate at this point anyway or colectomy. If there is no dysplasia on the biopsies, it would at least be helpful to give him a trial of an anti-TNF for colectomy. Job ID: [id number]
--- NOTE | 2018-09-12 17:26 | PDOC.PN ---
- Subjective Encounter Start Date: 09/12/18 Encounter Start Time: 15:15 Mr. Short was seen today in follow-up of Crohn's disease flair. He says the abdominal pain is getting a bit better. His diet has been advanced from full liquid diet - Objective Resuscitation Status - Order Detail: 09/07/18 07:37 Resuscitation Status Routine Resuscitation Status: FULL: Full Resuscitation MAR Reviewed: Yes Vital Signs & Weight: Vital Signs (12 hours) Temp Pulse Resp BP Pulse Ox 09/12/18 08:00 96 09/12/18 07:34 97.7 F 74 18 115/71 96 Weight Admit Weight 203 lb 14.841 oz Weight 203 lb 14.841 oz I&O: 09/11/18 09/12/18 09/13/18 06:59 06:59 06:59 Intake Total 840 800 Balance 840 800 Result Diagrams: 09/12/18 04:55 09/12/18 04:55 Phys Exam - Physical Examination HEENT: PERRLA, sclera anicteric Respiratory: no wheezing, no rales, no rhonchi Cardiovascular: RRR, no significant murmur, no rub Gastrointestinal: soft + mild right lower quadrant tenderness Musculoskeletal: no edema, pulses present Dx/Plan (1) Crohns disease Code(s): K50.90 - CROHN'S DISEASE, UNSPECIFIED, WITHOUT COMPLICATIONS Status: Chronic Qualifiers: Gastrointestinal tract location: large intestine Comment: Continue Solumedrol 20mg IV q6h, may need immunosuppressive therapy (2) 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 Brown. Will continue IV steroids, and symptom relief with analgesics * Continue nutritional support * Anemia- likely due to chronic disease * Patient may be more appropriate for care at [facility] due to the severity of his disease, especially the colonic stricture. Will begin arrangements for transfer .
[2018-09-12] MEDS: Ondansetron ODT 4 MG TAB PO PRN (20:57)
[2018-09-12] MEDS: Zolpidem Tartrate 5 MG TAB PO PRN (21:00)
[2018-09-13] MEDS: Ondansetron ODT 4 MG TAB PO PRN (05:37)
[2018-09-13] MEDS: HYDROcodone/Acetaminophen 5/325 mg Tablet PO PRN ×2 (05:38→10:25)
[2018-09-13] MEDS: methylPREDNISolone Sod Succ 40 MG VIAL IVP SCH ×3 (05:39→20:58)
[2018-09-13] MEDS: Lorazepam 1 MG TAB PO PRN ×3 (05:44→16:48)
[2018-09-13] MEDS: Enoxaparin Sodium 40 MG/0.4 ML SYRINGE SC SCH (08:00)
[2018-09-13] MEDS: Famotidine 20 MG TAB PO SCH ×2 (08:00→20:57)
[2018-09-13] MEDS ORDERED: HYDROcodone/Acetaminophen 5/325 mg Tablet PO PRN ×2 (14:03→14:49)
--- NOTE | 2018-09-13 16:07 | PDOC.PN ---
- Subjective Encounter Start Date: 09/13/18 Encounter Start Time: 15:30 Mr. Short was seen today in follow-up of Crohn's disease. He says he is doing better. He has less abdominal pain. He is tolerating a solid diet. - Objective Resuscitation Status - Order Detail: 09/07/18 07:37 Resuscitation Status Routine Resuscitation Status: FULL: Full Resuscitation MAR Reviewed: Yes Vital Signs & Weight: Vital Signs (12 hours) Temp Pulse Resp BP Pulse Ox 09/13/18 08:00 96 09/13/18 07:40 98.3 F 58 L 18 121/78 96 Weight Admit Weight 203 lb 14.841 oz Weight 203 lb 14.841 oz I&O: 09/12/18 09/13/18 09/14/18 06:59 06:59 06:59 Intake Total 800 Balance 800 Result Diagrams: 09/12/18 04:55 09/12/18 04:55 Phys Exam - Physical Examination HEENT: PERRLA Respiratory: no wheezing, no rales, no rhonchi, clear to auscultation bilateral Cardiovascular: RRR, no significant murmur, no rub Gastrointestinal: soft, non-tender, no distention, positive bowel sounds Musculoskeletal: no edema, pulses present Neurological: non-focal, normal sensation, moves all 4 limbs Dx/Plan (1) Crohns disease Code(s): K50.90 - CROHN'S DISEASE, UNSPECIFIED, WITHOUT COMPLICATIONS Status: Chronic Qualifiers: Gastrointestinal tract location: large intestine Comment: Continue Solumedrol 20mg IV q6h, may need immunosuppressive therapy (2) 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
[2018-09-13] MEDS: Acetaminophen 325 MG TAB PO PRN (16:50)
[2018-09-13] MEDS: Zolpidem Tartrate 5 MG TAB PO PRN (20:58)
--- NOTE | 2018-09-13 21:52 | PRG ---
DATE OF SERVICE: 09/13/2018 SUBJECTIVE: Mr. Short had 1 bowel movement today. This has formed to it. He is having some cramping in his lower abdomen. OBJECTIVE: VITAL SIGNS: Temperature 98.3, pulse 58, blood pressure 121/78. GENERAL: He is in no acute distress. Alert and oriented x3. LUNGS: Clear to auscultation bilaterally. HEART: Regular rate and rhythm without murmur. ABDOMEN: Soft. Minimal tenderness in lower abdomen without guarding. Bowel sounds are present. EXTREMITIES: No lower extremity edema. IMPRESSION: Severe Crohn's colitis with tight stricture in the duodenum. Biopsies from the duodenum were negative for dysplasia. Rectal biopsies were negative for dysplasia as well. This gives us the option of treating medically prior to surgery. He will need to continue the steroids and ideally would transition to an anti-TNF. Followup endoscopy after a period of steroids to evaluate if this stricture is responding would be appropriate. If the stricture remains significantly tight, then he just needs to go to surgery for colectomy. The proximal two-thirds of the colon could not be visualized with colonoscopy due to the stricture. RECOMMENDATIONS: 1. IV steroids. 2. Would recommend initiating Remicade therapy. This will have to be done through the retirement system, as if I start that medication in this hospital, there is no guarantee that the next dose will be approved or available. 3. Consider followup colonoscopy after a course of steroids to see if the stricture is responding. If not, then consider proceeding straight to surgical resection. 4. He is tolerating a solid diet. He is starting to show some constipation symptoms. Given the stricture, I am concerned of him becoming constipated proximal to the stricture. Now that the inflammation is improving with the steroids and the diarrhea is improving, he might need to start dose of MiraLAX daily. I will reassess tomorrow and if the reduced stool output persists with increased abdominal discomfort and firmness of the stool, then he will need to be started on a daily scheduled osmotic laxative. 5. Recommend transfer to a facility where the patient can receive longer-term acute care and undergo consultation with colorectal surgery and evaluation for initiation of anti-TNF therapy such as Remicade. Job ID: [id number]
[2018-09-14] MEDS: Lorazepam 1 MG TAB PO PRN ×4 (00:45→20:34)
[2018-09-14] MEDS: methylPREDNISolone Sod Succ 40 MG VIAL IVP SCH ×4 (06:24→21:04)
[2018-09-14] MEDS: Acetaminophen 325 MG TAB PO PRN ×3 (06:29→20:40)
[2018-09-14] MEDS: Famotidine 20 MG TAB PO SCH ×2 (07:50→19:50)
[2018-09-14] MEDS: Enoxaparin Sodium 40 MG/0.4 ML SYRINGE SC SCH (07:50)
[2018-09-14] MEDS: Ondansetron ODT 4 MG TAB PO PRN ×2 (13:38→23:02)
--- NOTE | 2018-09-14 14:23 | PDOC.PN ---
- Subjective Encounter Start Date: 09/14/18 Encounter Start Time: 14:22 Mr. Short was seen today in follow-up of Crohn's disease. He says he has less abdominal pain. He has been tolerating a solid diet. - Objective Resuscitation Status - Order Detail: 09/07/18 07:37 Resuscitation Status Routine Resuscitation Status: FULL: Full Resuscitation MAR Reviewed: Yes Vital Signs & Weight: Vital Signs (12 hours) Temp Pulse Resp BP Pulse Ox 09/14/18 07:42 97.9 F 70 18 124/75 95 Weight Admit Weight 203 lb 14.841 oz Weight 203 lb 14.841 oz Result Diagrams: 09/12/18 04:55 09/12/18 04:55 Phys Exam - Physical Examination HEENT: PERRLA Respiratory: no wheezing, no rales, no rhonchi, clear to auscultation bilateral Cardiovascular: RRR, no significant murmur, no rub Gastrointestinal: soft, non-tender, no distention, positive bowel sounds Musculoskeletal: no edema, pulses present Dx/Plan (1) Crohns disease Code(s): K50.90 - CROHN'S DISEASE, UNSPECIFIED, WITHOUT COMPLICATIONS Status: Chronic Qualifiers: Gastrointestinal tract location: large intestine Comment: Continue Solumedrol 20mg IV q6h, may need immunosuppressive therapy (2) 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 According to our Hospital Monitor he will need to be started on a biologic agent. (Remicaide) . He also recommends follow-up colonoscopy soon * Chronic anemia- stable * Awaiting transfer to the correctional facility
[2018-09-14 14:31] LABS: QuantiFERON-TB Gold Plus Negative (Negative)
[2018-09-14] MEDS: Zolpidem Tartrate 5 MG TAB PO PRN (23:02)
--- NOTE | 2018-09-15 00:07 | HP ---
SUBJECTIVE: Mr. Short has had 1 bowel movement today. This has some formed to it. He started to feel a little more on the constipated side. He has had some cramping in his lower abdomen which is mild. OBJECTIVE: VITAL SIGNS: Temperature 97.9, pulse 70, blood pressure 124/75. GENERAL: He is in no acute distress. Alert and oriented x3. LUNGS: Clear to auscultation bilaterally. HEART: Regular rate and rhythm without murmur. ABDOMEN: Soft, tender to palpation in the lower abdomen without guarding. Bowel sounds are present. EXTREMITIES: No lower extremity edema. IMPRESSION: 1. Severe Crohn's colitis. Clinically improved with IV Solu-Medrol. He should be ready to transition to oral steroids by tomorrow. 2. 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 Biopsies from the colon were negative for dysplasia. The proximal 2/3 of the colon could not be visualized due to the descending colon stricture. RECOMMENDATIONS: 1. He should be ready to transition to oral steroids soon. 2. Consider adding MiraLAX 17 g daily as he may become constipated above the descending colon stricture. 3. I believe he should be started on an anti-TNF. Followup endoscopy can be performed to evaluate response to steroids and anti-TNF, and if the stricture remains tight or symptomatic, then surgery will be required. Alternatively, followup endoscopy could be performed after a month of steroids, at which point if he remains tightly strictured, then he could proceed directly to surgical resection. 4. Plan is for transfer to a present medical facility where he can be evaluated for anti-TNF therapy and by colorectal surgery as well. Job ID: [id number]
--- NOTE | 2018-09-15 02:48 | DIS ---
DATE OF ADMISSION: 09/07/2018 DATE OF DISCHARGE: 09/14/2018 PRIMARY CARE PHYSICIAN: The patient does not have a primary care physician. DISCHARGE DISPOSITION: [facility]. DISCHARGE DIAGNOSES: 1. Acute Crohn's disease flare. 2. Anemia of chronic disease. 3. Stricture of the colon. DISCHARGE MEDICATIONS: Include; 1. Methylprednisolone 20 mg IV q.8. 2. Zofran 4 mg q.6. 3. Pepcid 20 mg twice a day. 4. Lovenox 40 mg subcu daily. 5. Bentyl 20 mg p.o. q.i.d. 6. Tums p.r.n. PROCEDURES DONE DURING THE ADMISSION: The patient had an EGD with biopsy as well as a colonoscopy with biopsy. The EGD showed mild erosive gastritis, which was grade A, duodenal biopsies were taken to rule out celiac disease. There was a severe circumferential inflammation with ulceration and erythema throughout the colon, which could be visualized in the rectum, sigmoid and descending colon. There was a tight stricture at 35 cm, which was too tight to pass the endoscope. The patient also had QuantiFERON gold test as well as a hepatitis B and HIV and hepatitis C serology done, these were all negative. CODE STATUS: Full code. ALLERGIES: NO KNOWN DRUG ALLERGIES. HOSPITAL COURSE: Mr. Short is a pleasant, 43-year-old gentleman who was admitted to the hospital with complaints of abdominal pain. He has a known history of Crohn disease and was found to have active Crohn disease as well as a very tight colonic stricture. He was started on IV steroids as well as IV hydration and antiemetics and analgesics. He was initially started on a clear liquid diet, but this was later advanced to solid food after his disease was stabilized. Our emulsification operator was concerned about the severe stricture area. Biopsies were taken to rule out dysplasia, which were negative for dysplasia. However, he felt that he would need to be placed on a biologic agent such as Remicade for better disease control. HIV screen as well as hepatitis B and C and TB screens were done, which were negative in preparation for him to be placed on the biologic agent. This would be better performed at a facility that will be treating him long-term since he is under the auspices of [facility], they are contracted to take care of patient at [facility] in [place]. Therefore, he was transferred there for further treatment. Job ID: [id number]
[2018-09-15] MEDS: Lorazepam 1 MG TAB PO PRN ×3 (04:54→15:48)
[2018-09-15] MEDS: Acetaminophen 325 MG TAB PO PRN ×3 (04:54→15:47)
[2018-09-15] MEDS: methylPREDNISolone Sod Succ 40 MG VIAL IVP SCH (05:06)
[2018-09-15] MEDS: Enoxaparin Sodium 40 MG/0.4 ML SYRINGE SC SCH (07:58)
[2018-09-15] MEDS ORDERED: Polyethylene Glycol 3350 17 GM Packet PO SCH (09:00)
[2018-09-15] MEDS: Famotidine 20 MG TAB PO SCH (10:45)
--- NOTE | 2018-09-15 13:27 | PDOC.PN ---
- Subjective Encounter Start Date: 09/15/18 Encounter Start Time: 13:26 Mr. Short was seen today in follow-up of Crohn's disease flare. He does not have any abdominal complaints. He says he is suffering from depression and anxiety, and feels" hot" all over. He has been tolerating a solid diet. - Objective Resuscitation Status - Order Detail: 09/07/18 07:37 Resuscitation Status Routine Resuscitation Status: FULL: Full Resuscitation MAR Reviewed: Yes Vital Signs & Weight: Vital Signs (12 hours) Temp Pulse Resp BP Pulse Ox 09/15/18 08:00 98.2 F 91 18 137/80 96 Weight Admit Weight 203 lb 14.841 oz Weight 203 lb 14.841 oz I&O: 09/14/18 09/15/18 09/16/18 06:59 06:59 06:59 Intake Total 1530 Balance 1530 Result Diagrams: 09/12/18 04:55 09/12/18 04:55 Phys Exam - Physical Examination HEENT: PERRLA Respiratory: no wheezing, no rales, no rhonchi, clear to auscultation bilateral Cardiovascular: RRR, no significant murmur, no rub Gastrointestinal: soft, non-tender, no distention, positive bowel sounds Musculoskeletal: no edema, pulses present Neurological: non-focal, normal sensation, moves all 4 limbs Dx/Plan (1) Crohns disease Code(s): K50.90 - CROHN'S DISEASE, UNSPECIFIED, WITHOUT COMPLICATIONS Status: Chronic Qualifiers: Gastrointestinal tract location: large intestine Comment: Continue Solumedrol 20mg IV q6h, may need immunosuppressive therapy (2) Stricture of colon determined by endoscopy Code(s): K56.699 - OTHER INTESTNL OBST UNSP TO PARTIAL VERSUS COMPLETE OBST Status: Chronic Comment: Likely will need surgical intervention, [facility] transfer recommended (3) Anemia, normocytic normochromic Code(s): D64.9 - ANEMIA, UNSPECIFIED Status: Chronic Comment: Serial H/H monitoring - Plan * Crohn's disease- slowly improving on steroids. I spoke with Dr. Brown, and he can be changed to oral Prednisone * Depression - he tells me he was taking Prosac and Xanax before coming to the hospital- will re-start Prosac for now * Chronic anemia- stable * Awaiting transfer to [facility].
--- NOTE | 2018-09-15 15:26 | PRG ---
DATE OF SERVICE: 09/15/2018 SUBJECTIVE: Mr. Sohrt had one small bowel movement this morning. Still has some lower abdominal cramping. OBJECTIVE: VITAL SIGNS: Temperature 98.2, pulse 91, blood pressure 137/80. GENERAL: He is in no acute distress. Alert and oriented x3. LUNGS: Clear to auscultation bilaterally. HEART: Regular rate and rhythm without murmur. ABDOMEN: Soft. Mild tenderness in the lower abdomen without guarding. Bowel sounds are present. EXTREMITIES: No lower extremity edema. IMPRESSION: Severe Crohn colitis with tight stricture of the descending colon. The proximal two-thirds of the colon were not visualized by colonoscopy due to the stricture. He is symptomatically improved with steroids and I think we can switch to oral steroids today. Biopsies from the colon were negative for dysplasia. Ideally, he would be changed to Remicade at this point. He could have followup colonoscopy to see if the stricture is responding to that after a month or two. If not, he will likely ultimately require colectomy. Symptomatically, he is doing better. RECOMMENDATIONS: 1. Change to prednisone 40 mg daily. 2. MiraLAX 17 g daily to help keep things moving through the stricture. 3. Recommend transfer him to a [facility], where he could be initiated on Remicade. If he actually loses all care, insurance coverage, or [facility] coverage when he is released on parole, then starting an anti-TNF will likely not result in maintain therapy as he will still need to continue this longer term. He states that he is due to be released in 39 days. The [facility] system will have to determine if he still maintains coverage while on parole or not. 4. Otherwise, the other option is just to continue steroids and as he weans this down and tapers off again, he will just bounce back to the hospital with another flare of his Crohn colitis. Still it might be helpful to perform followup colonoscopy after a couple of months of steroids to determine what is going on with his descending colon stricture. Job ID: [id number]
[2018-09-15] MEDS: Ondansetron ODT 4 MG TAB PO PRN (17:56)
[2018-09-15] MEDS ORDERED: Lorazepam 0.5 MG TAB PO SCH (21:15)
--- NOTE | 2018-09-15 21:24 | RAD ---
EXAM: Single view of the chest HISTORY: Chest pain COMPARISON: None FINDINGS: Single view of the chest shows a normal sized cardiomediastinal silhouette. Bilateral lester hilar opacities are seen. There is no evidence of consolidation, mass, or pleural effusion. The bones are unremarkable. IMPRESSION: Perihilar opacities can be seen with atypical infection or reactive airways disease.
[2018-09-15] MEDS ORDERED: Nitroglycerin 0.4 MG TAB (25 Tab Bottle) SL SCH (21:30)
[2018-09-15] MEDS ORDERED: Lidocaine 2% Viscous Solution 20 ML, Aluminum & Magnesium Hydroxide 30 ML, Donnatal Eli... SSW SCH (21:30)
[2018-09-15] MEDS ORDERED: guaiFENesin 200 MG TAB PO PRN (23:36)
[2018-09-16] MEDS ORDERED: Morphine 2 MG/ML SYRINGE SLOW IVP SCH (03:45)
--- NOTE | 2018-09-16 04:08 | PDOC.EVN ---
Event Note - Event Note Event Note: Alerted at 20:50 about patient having chest pain when being wheeled out of hospital. Came to bedside and patient appeared to be in discomfort. With occasional coughing which seemed to make discomfort worse. Denies any associated nausea. Reports feeling generally unwell. States has had a persistent cough throughout his hospitalization. Cough nonproductive. Reports pain is 7/10 in severity, substernal, and experienced tingling in right arm which has resolved. He does have handcuffs in place. Patient reports having epigastric discomfort as well. Describes burning sensation. Family hx of CAD. His grandfather of [place] at age 45. Given GI Cocktail and Nitro. CXR obtained, EKG without any ST changes. Serial troponins ordered. Reports being sedentary. D-dimer requested. Patient moved to [facility] for monitoring. ADDENDUM: CXR showed opactities and changes concerning for reactive airway. Heart appears enlarged. BNP normal. D-dimer elevated. Following discussion with Dr. Sellers, given no tachycardia and normal sats, with findings on CXR likely representing infectious process, he advised CTA in the AM. Continue to monitor. Chest pain has settled. ADDENDUM: 04:06, 09/16/18 Patient complaining of severe lower abdominal pain. 9/10. Tender to palpation on exam. Feels bloating but abdomen soft. States he had episodes of vomiting yesterday. Does not recall last bowel movement. Abdo xray requested as well as repeat labs. Morphine 2 mg X 1 prescribed. Vitals stable.
[2018-09-16 05:06] LABS: #Lymphocytes 2.2 thou/uL (1.20-3.40); #Neutrophils 5.7 thou/uL (1.40-6.50); %Basophils 0.3 % (0.0-1.0); %Eosinophils 0.5 % (0.0-10.0); %Monocytes 10.7 % (0.0-10.0); %Neutrophils 63.5 % (42.0-75.0); Mean Corpuscular HGB CONC 31.9 g/dL (32.0-36.0); Mean Corpuscular Hemoglobin 25.7 pg (27.0-31.0); Mean Corpuscular Volume 80.8 fL (78.0-98.0); Mean Platelet Volume 6.9 fL (7.4-10.4); Platelet Count 383 thou/uL (130-400); RBC Distribution Width 12.9 % (11.5-14.5)
[2018-09-16 05:19] LABS: Lactic Acid 2.1 mmol/L (0.5-2.2)
[2018-09-16 05:25] LABS: ALT (SGPT) 160 U/L (8-55); AST (SGOT) 35 U/L (5-34); Albumin 3.3 g/dL (3.5-5.0); Alkaline Phosphatase 88 U/L (40-150); Anion Gap 11 mmol/L (10-20); BUN (Urea Nitrogen) 25 mg/dL (8.9-20.6); Bilirubin, Total 0.4 mg/dL (0.2-1.2); CK (CPK) 27 U/L (30-200); Calc. Creatinine Clearance 177 mL/min (70-130); Calcium 8.8 mg/dL (7.8-10.44); Carbon Dioxide 31 mmol/L (22-29); Chloride 97 mmol/L (98-107); Estimated GFR-MDRD Greater than 90; Globulin 2.4 g/dL (2.4-3.5); Glucose 93 mg/dL (70-105); Lipase 28 U/L (8-78); Potassium 4.1 mmol/L (3.5-5.1); Protein, Total 5.7 g/dL (6.0-8.3); Sodium 135 mmol/L (136-145)
[2018-09-16] MEDS: Dicyclomine 10 MG CAP PO PRN ×2 (05:27→09:45)
[2018-09-16] MEDS ORDERED: Senokot S 8.6-50 MG TAB PO SCH (05:30)
[2018-09-16] MEDS ORDERED: Polyethylene Glycol 3350 17 GM Packet PO SCH (05:30)
[2018-09-16] MEDS ORDERED: Sodium Chloride 0.9% 1,000 ML IV SCH (06:00)
--- NOTE | 2018-09-16 07:14 | CT ---
CTA CHEST, WITH CONTRAST WITH 3D VOLUME RENDERING. INDICATION: Chest pain with elevated D-dimer. FINDINGS: There is diffuse low density throughout the pulmonary arterial system related to diminished density f rom a lack of sufficient contrast within the pulmonary arteries, which precludes assessment for detec tion of pulmonary emboli. There is no aneurysmal dilatation or dissection of the thoracic aorta. Mi ld patchy opacities of the subpleural aspect of the lungs, likely relates to mild atelectasis. There is no pneumothorax or pleural effusion. IMPRESSION: Incomplete evaluation for pulmonary emboli due to markedly reduced contrast density of the pulmonary arterial system. Therefore, recommend VQ scan to further evaluate. POS: MARLON
[2018-09-16] MEDS ORDERED: predniSONE 20 MG TAB PO SCH (08:00)
[2018-09-16] MEDS ORDERED: FLUoxetine HCl 20 MG CAP PO SCH (09:00)
[2018-09-16] MEDS ORDERED: Benzonatate 100 MG CAP PO SCH (09:00)
[2018-09-16] MEDS ORDERED: Aspirin 325 MG TAB PO SCH (09:00)
--- NOTE | 2018-09-16 09:55 | PDOC.PN ---
- Subjective Encounter Start Date: 09/16/18 Encounter Start Time: 09:53 Mr. Short was seen today in follow-up of Crohn's disease flare. He is complaining of lower abdominal pain now. He denies chest pain. He has not had a bowel movement today. - Objective Resuscitation Status - Order Detail: 09/07/18 07:37 Resuscitation Status Routine Resuscitation Status: FULL: Full Resuscitation MAR Reviewed: Yes Vital Signs & Weight: Vital Signs (12 hours) Temp Pulse Resp BP Pulse Ox 09/16/18 07:53 77 16 09/16/18 07:23 97.8 F 82 16 103/57 L 100 09/16/18 03:16 98.9 F 88 16 133/72 95 09/15/18 23:00 97 09/15/18 22:03 98.2 F 92 16 125/79 97 Weight Admit Weight 203 lb 14.841 oz Weight 203 lb 14.841 oz I&O: 09/15/18 09/16/18 09/17/18 06:59 06:59 06:59 Intake Total 1530 Balance 1530 Result Diagrams: 09/16/18 04:10 09/16/18 04:10 Phys Exam - Physical Examination HEENT: PERRLA Respiratory: no wheezing, no rales, no rhonchi, clear to auscultation bilateral Cardiovascular: RRR, no significant murmur, no rub Gastrointestinal: soft, positive bowel sounds + left lower quadrant tenderness, no rebound or guarding abdomen is soft Musculoskeletal: no edema, pulses present, edema present Dx/Plan (1) Crohns disease Code(s): K50.90 - CROHN'S DISEASE, UNSPECIFIED, WITHOUT COMPLICATIONS Status: Chronic Qualifiers: Gastrointestinal tract location: large intestine Comment: Continue Solumedrol 20mg IV q6h, may need immunosuppressive therapy (2) Stricture of colon determined by endoscopy Code(s): K56.699 - OTHER INTESTNL OBST UNSP TO PARTIAL VERSUS COMPLETE OBST Status: Chronic Comment: Likely will need surgical intervention, [facility] transfer recommended (3) Anemia, normocytic normochromic Code(s): D64.9 - ANEMIA, UNSPECIFIED Status: Chronic Comment: Serial H/H monitoring - Plan * Crohn's disease flare- his KUB was noted, he appears to be constipated. This is likely from the patient eating too much too soon. He had been requesting double portions, ice cream ect. when he was on the medical unit. Will give a fleets enema. Place him on a full liquid diet * I believe he can still be transferred to the medical unit through [facility] as long as he tolerates a full liquid diet * Anxiety and depression- continue Prosac .
--- NOTE | 2018-09-16 10:00 | RAD ---
ONE VIEW ABDOMEN: HISTORY: Pain. Bloating. FINDINGS: There is contrast noted in the left and right intrarenal collecting systems which appear to be decomp ressed. The bowel gas pattern is nonspecific. Scattered fecal material in a nondistended, nondilate d colon. Contrast is also noted in the urinary bladder. IMPRESSION: Nonspecific bowel gas pattern. POS: OFF
[2018-09-16] MEDS: Fleet Enema 133 ML BOT PR SCH ×2 (11:22→11:33)
[2018-09-16 12:21] VITALS: BP 117/70; TEMP 97.5
== END 2018-09-16 17:00 | DRG 386 ==
LOC: ERS 22:05 → EEVIPCON 22:05 → T4-A 22:06 → UNDOADMIN 09-07 00:21 → UNDODISIN 09-15 19:54 → 2NO 09-15 22:01
PROVIDERS: ADMIT Hospitalist; ATTEND Hospitalist
PROC: 0DB98ZX Excision of Duodenum, Via Natural or Artificial Opening Endoscopic, Diagnostic (ICD-10-PCS; principal; 2018-09-09)
PROC: 0DB58ZX Excision of Esophagus, Via Natural or Artificial Opening Endoscopic, Diagnostic (ICD-10-PCS; 2018-09-09)
PROC: 0DBM8ZX Excision of Descending Colon, Via Natural or Artificial Opening Endoscopic, Diagnostic (ICD-10-PCS; 2018-09-09)
PROC: 0DBN8ZX Excision of Sigmoid Colon, Via Natural or Artificial Opening Endoscopic, Diagnostic (ICD-10-PCS; 2018-09-09)
PROC: 0DBP8ZX Excision of Rectum, Via Natural or Artificial Opening Endoscopic, Diagnostic (ICD-10-PCS; 2018-09-09)
DX: K50.10 Crohn's disease of large intestine without complications (principal); K56.699 Other intestinal obstruction unspecified as to partial versus complete obstruction; K22.10 Ulcer of esophagus without bleeding; F41.9 Anxiety disorder, unspecified; F32.9 Major depressive disorder, single episode, unspecified; D63.8 Anemia in other chronic diseases classified elsewhere; Z90.49 Acquired absence of other specified parts of digestive tract; Z79.52 Long term (current) use of systemic steroids; Z87.19 Personal history of other diseases of the digestive system; Z79.899 Other long term (current) drug therapy
CPT/HCPCS: 36415; 71045; 71275; 74018; 80053; 82550; 83605; 83690; 83880; 84484; 85025; 85379; 86480; 86704; 86706; 86708; 86803; 87045; 87046; 87324; 87328; 87329; 87340; 87389; 87449; 87899; 88305; 88312; 88313; 93005; 93010; 94640; 96374; J1650; J2270; J2405; J2704; J2920; J3010; J7620; Q0162